=== PATIENT | female | born 1985 | race Caucasian/White ===

== ENCOUNTER 2017-03-05 19:30 | Emergency (ER) | payer BC ==
[~2017-03-05] VITALS: Ht 167.6 cm; Wt 99.2 kg
[~2017-03-05 19:30] MED LIST: EFFEXOR XR75 MG PO; ELIQUIS5 MG PO; LORAZEPAM0.5 MG PO; VENLAFAXINE HCL75 M1 PO; VENLAFAXINE75 M2 PO; XANAX0.25 MG PO; ZOFRAN4 MG/TAB PO
[2017-03-05] MEDS ORDERED: XANAX0.5 MG PO (19:50)
[2017-03-05 20:46] LABS: URINE BILIRUBIN - DIPSTICK NEGATIVE (NEGATIVE); URINE BLOOD DIPSTICK NEGATIVE (NEGATIVE); URINE CLARITY CLEAR; URINE COLOR YELLOW; URINE GLUCOSE - DIPSTICK NEGATIVE (NEGATIVE); URINE KETONE NEGATIVE (NEGATIVE); URINE LEUK ESTERASE NEGATIVE (NEGATIVE); URINE NITRITE - DIPSTICK NEGATIVE (Negative); URINE PROTEIN - DIPSTICK NEGATIVE (NEG-TRACE); URINE UROBILINOGEN - DIPSTICK 0.2 E.U./dL (0.2)
[2017-03-05 20:58] LABS: HEMATOCRIT 31.3 % (37.0-47.0); HEMOGLOBIN 10.1 g/dl (12.0-16.0); IMMATURE GRANULOCYTES 1.8 % (0.0-1.0); MEAN CELL VOLUME 83.7 fL CALC (80.0-100.0); MEAN CORPUSCULAR HGB CONC 32.3 g/L CALC (32.0-36.0); NEUT# 7.36 thou/uL (2.00-7.15); RED BLOOD COUNT 3.74 mill/uL (4.20-5.60); RED CELL DISTRI WIDTH 13.7 % (11.5-15.5)
[2017-03-05 21:12] LABS: INFLUENZA A NONE DETECTED (NONE DETECT); INFLUENZA B NONE DETECTED (NONE DETECT)
[2017-03-05 21:15] LABS: ALBUMIN 3.5 g/dL (3.2-5.0); ALKALINE PHOSPHATASE 79 u/l (38-126); ANION GAP 16 (6-22 (CALC)); BILIRUBIN, TOTAL 0.6 mg/dL (0.0-1.4); BUN 6 mg/dL (7-17); BUN/CREATININE RATIO 12 (12-20 (CALC)); CALCIUM 9.6 mg/dL (8.4-10.2); CARBON DIOXIDE 20 mmol/l (22-30); CHLORIDE 106 mmol/l (95-108); CREATININE 0.5 mg/dL (0.5-1.0); GFR > 60 ML/MIN (>=60 (CALC)); GFR FOR AFR.AMER. > 60 ML/MIN (>=60 (CALC)); GLUCOSE 86 mg/dL (65-105); POTASSIUM 4.1 mmol/l (3.5-5.1); SGOT/AST 12 u/l (14-36); SGPT/ALT 26 u/l (9-52); SODIUM 138 mmol/l (137-146); TOTAL PROTEIN 6.4 g/dL (6.3-8.2)
[2017-03-05 21:57] VITALS: BP 130/68
== END 2017-03-05 22:00 | disposition home or self-care (01) | DRG 781 ==
LOC: ED 19:30
PROVIDERS: Emergency Medicine
DX: O99.013 Anemia complicating pregnancy, third trimester (principal); R42 Dizziness and giddiness; Z3A.33 33 weeks gestation of pregnancy; R53.1 Weakness; R11.0 Nausea

== ENCOUNTER 2017-04-28 17:50 | Emergency (ER) | payer BC ==
[~2017-04-28] VITALS: Ht 167.6 cm; Wt 110.0 kg
[~2017-04-28 17:50] MED LIST changes: +XANAX0.5 MG PO
[2017-04-28 19:59] LABS: URINE BILIRUBIN - DIPSTICK NEGATIVE (NEGATIVE); URINE BLOOD DIPSTICK TRACE-INTACT (NEGATIVE); URINE CLARITY CLEAR; URINE COLOR YELLOW; URINE GLUCOSE - DIPSTICK NEGATIVE (NEGATIVE); URINE KETONE NEGATIVE (NEGATIVE); URINE LEUK ESTERASE NEGATIVE (NEGATIVE); URINE NITRITE - DIPSTICK NEGATIVE (Negative); URINE PH 5.5 (4.5-8.0); URINE PROTEIN - DIPSTICK NEGATIVE (NEG-TRACE); URINE UROBILINOGEN - DIPSTICK 0.2 E.U./dL (0.2)
[2017-04-28 20:03] LABS: BARBITURATES NEGATIVE (NEGATIVE); COCAINE NEGATIVE (NEGATIVE); HEMATOCRIT 38.4 % (37.0-47.0); HEMOGLOBIN 11.4 g/dl (12.0-16.0); IMMATURE GRANULOCYTES 0.6 % (0.0-1.0); MEAN CELL VOLUME 79.2 fL CALC (80.0-100.0); MEAN CORPUSCULAR HGB 23.5 pG CALC (26.0-32.0); MEAN CORPUSCULAR HGB CONC 29.7 g/L CALC (32.0-36.0); METHADONE NEGATIVE (NEGATIVE); NEUT# 6.11 thou/uL (2.00-7.15); OXCYCODONE NEGATIVE (NEGATIVE); RED BLOOD COUNT 4.85 mill/uL (4.20-5.60); RED CELL DISTRI WIDTH 15.8 % (11.5-15.5); TETRAHYDROCANNABIONOL NEGATIVE (NEGATIVE); TRICYLIC ANTIDEPRESSANTS NEGATIVE (NEGATIVE)
[2017-04-28 20:54] LABS: ALBUMIN 4.1 g/dL (3.2-5.0); ALKALINE PHOSPHATASE 101 u/l (38-126); ANION GAP 17 (6-22 (CALC)); BUN 13 mg/dL (7-17); BUN/CREATININE RATIO 18 (12-20 (CALC)); CALCIUM 9.7 mg/dL (8.4-10.2); CARBON DIOXIDE 24 mmol/l (22-30); CHLORIDE 108 mmol/l (95-108); CREATININE 0.7 mg/dL (0.5-1.0); GFR > 60 ML/MIN (>=60 (CALC)); GFR FOR AFR.AMER. > 60 ML/MIN (>=60 (CALC)); GLUCOSE 85 mg/dL (65-105); POTASSIUM 4.4 mmol/l (3.5-5.1); SGOT/AST 21 u/l (14-36); SGPT/ALT 35 u/l (9-52); SODIUM 144 mmol/l (137-146); TOTAL PROTEIN 7.3 g/dL (6.3-8.2)
[2017-04-28 22:03] VITALS: BP 130/73
== END 2017-04-28 22:03 | disposition home or self-care (01) | DRG 880 ==
LOC: ED 17:50
PROVIDERS: Emergency Medicine
DX: F41.9 Anxiety disorder, unspecified (principal); I10 Essential (primary) hypertension; F43.10 Post-traumatic stress disorder, unspecified; Z86.718 Personal history of other venous thrombosis and embolism

== ENCOUNTER → 2018-09-23 | Outpatient (REF) | payer BC | END | disposition home or self-care (01) | DRG 864 | LOC: LABSPEC 12:22 | PROVIDERS: ATTEND Nurse Practitioner Family | DX: R50.9 Fever, unspecified (principal) ==

== ENCOUNTER 2019-03-08 17:55 | Emergency (ER) | payer SELFPAY ==
[~2019-03-08] VITALS: Ht 167.6 cm; Wt 102.8 kg
[2019-03-08] MEDS ORDERED: LAMICTAL100 MG PO (18:31)
[2019-03-08] MEDS ORDERED: FLUOXETINE HCL20 MG PO (18:32)
[2019-03-08] MEDS ORDERED: FLUOXETINE20 MG PO (18:43)
[2019-03-08 18:50] VITALS: BP 123/70
== END 2019-03-08 18:50 | disposition home or self-care (01) | DRG 951 ==
LOC: ED 17:55
DX: Z76.0 Encounter for issue of repeat prescription (principal); F41.9 Anxiety disorder, unspecified; F43.10 Post-traumatic stress disorder, unspecified

== ENCOUNTER 2019-04-28 14:12 | Emergency (ER) | payer OTHER ==
[~2019-04-28] VITALS: Ht 167.6 cm; Wt 95.0 kg
[~2019-04-28 14:12] MED LIST changes: +FLUOXETINE HCL20 MG PO; +FLUOXETINE20 MG PO; +LAMICTAL100 MG PO
[2019-04-28] MEDS ORDERED: PROZAC10 MG PO (15:48)
[2019-04-28] MEDS ORDERED: CLONAZEPAM1 MG PO (15:49)
[2019-04-28] MEDS ORDERED: MARINOL5 MG PO (15:50)
[2019-04-28] MEDS ORDERED: MEDDOSEPAK PO (17:59)
[2019-04-28] MEDS ORDERED: LORTAB 7.57.5 MG PO (17:59)
[2019-04-28] MEDS ORDERED: FLEXERIL PO (17:59)
[2019-04-28 19:05] VITALS: BP 113/76
== END 2019-04-28 19:05 | disposition home or self-care (01) | DRG 552 ==
LOC: ED 14:12
DX: M62.830 Muscle spasm of back (principal); F17.210 Nicotine dependence, cigarettes, uncomplicated

== ENCOUNTER 2021-11-17 16:33 | Emergency (ER) | payer OTHER ==
[~2021-11-17] VITALS: Ht 167.6 cm; Wt 118.0 kg
[~2021-11-17 16:33] MED LIST changes: +CLONAZEPAM1 MG PO; +FLEXERIL PO; +LORTAB 7.57.5 MG PO; +MARINOL5 MG PO; +MEDDOSEPAK PO; +PROZAC10 MG PO
[2021-11-17 16:46] VITALS: BP 131/94
[2021-11-17] MEDS ORDERED: KLONOPIN1 MG PO (17:16)
[2021-11-17 17:21] VITALS: BP 131/94
== END 2021-11-17 17:28 | disposition home or self-care (01) | DRG 951 ==
LOC: ED 16:33
DX: Z76.0 Encounter for issue of repeat prescription (principal); F41.9 Anxiety disorder, unspecified; F17.200 Nicotine dependence, unspecified, uncomplicated

== ENCOUNTER 2022-01-29 14:25 | Emergency (ER) | payer OTHER ==
[~2022-01-29] VITALS: Ht 167.6 cm; Wt 110.0 kg
[2022-01-29] VITALS (10 sets, daily range): BP systolic 95–129; BP diastolic 65–84
[~2022-01-29 14:25] MED LIST changes: +KLONOPIN1 MG PO
[2022-01-29 14:55] LABS: HEMATOCRIT 41.5 % (37.0-47.0); HEMOGLOBIN 12.9 g/dl (12.0-16.0); IMMATURE GRANULOCYTES 0.2 % (0.0-5.0); MEAN CELL VOLUME 83.2 fL CALC (80.0-100.0); MEAN CORPUSCULAR HGB 25.9 pG CALC (26.0-32.0); MEAN CORPUSCULAR HGB CONC 31.1 g/dL CAL (32.0-36.0); NEUT# 4.53 thou/uL (2.00-7.15); RED BLOOD COUNT 4.99 mill/uL (4.20-5.60)
[2022-01-29 15:14] LABS: ALBUMIN 3.9 g/dL (3.2-5.0); ALKALINE PHOSPHATASE 61 u/l (38-126); ANION GAP 9 (6-22 (CALC)); BILIRUBIN, TOTAL 0.5 mg/dL (0.0-1.4); BUN 3 mg/dL (7-17); BUN/CREATININE RATIO 4 (12-20 (CALC)); CARBON DIOXIDE 23 mmol/l (22-30); CHLORIDE 109 mmol/l (95-108); CREATININE 0.9 mg/dL (0.5-1.0); GFR FOR AFR.AMER. > 60 ML/MIN (>=60 (CALC)); GFR OTHER RACES > 60 ML/MIN (>=60 (CALC)); POTASSIUM 4.5 mmol/l (3.5-5.1); SGOT/AST 35 u/l (14-36); SODIUM 136 mmol/l (137-146); TOTAL PROTEIN 7.1 g/dL (6.3-8.2)
[2022-01-29] MEDS ORDERED: PREDNISONE50 MG PO (16:38)
[2022-01-29] MEDS ORDERED: AMOX/K CLAV875 M1 PO (16:38)
[2022-01-29] MEDS ORDERED: CHERATUSSIN PO (16:38)
[2022-01-29] MEDS ORDERED: ZPAK PO (16:38)
[2022-01-29] MEDS ORDERED: PROAIR HFA108 MCG/AC PO (16:38)
== END 2022-01-30 10:26 | disposition home or self-care (01) | DRG 203 ==
LOC: ED 14:25
PROVIDERS: Family Medicine
DX: J40 Bronchitis, not specified as acute or chronic (principal); F41.9 Anxiety disorder, unspecified; E78.00 Pure hypercholesterolemia, unspecified; F17.210 Nicotine dependence, cigarettes, uncomplicated; Z20.822 Contact with and (suspected) exposure to COVID-19

== ENCOUNTER 2022-02-02 16:16 | Emergency (ER) | payer OTHER ==
[~2022-02-02] VITALS: Ht 167.6 cm; Wt 109.7 kg
[~2022-02-02 16:16] MED LIST changes: +AMOX/K CLAV875 M1 PO; +CHERATUSSIN PO; +PREDNISONE50 MG PO; +PROAIR HFA108 MCG/AC PO; +ZPAK PO
[2022-02-02 16:25] VITALS: BP 145/102
[2022-02-02 16:39] VITALS: BP 124/93
[2022-02-02 17:01] VITALS: BP 111/77
[2022-02-02 17:10] LABS: HEMATOCRIT 41.3 % (37.0-47.0); HEMOGLOBIN 12.8 g/dl (12.0-16.0); MEAN CELL VOLUME 82.9 fL CALC (80.0-100.0); MEAN CORPUSCULAR HGB 25.7 pG CALC (26.0-32.0); NEUT# 4.12 thou/uL (2.00-7.15); RED BLOOD COUNT 4.98 mill/uL (4.20-5.60); RED CELL DISTRI WIDTH 15.8 % (11.5-15.5)
[2022-02-02 17:29] LABS: ALBUMIN 3.9 g/dL (3.2-5.0); ALKALINE PHOSPHATASE 68 u/l (38-126); ANION GAP 10 (6-22 (CALC)); BILIRUBIN, TOTAL 0.6 mg/dL (0.0-1.4); BUN 13 mg/dL (7-17); BUN/CREATININE RATIO 15 (12-20 (CALC)); CARBON DIOXIDE 24 mmol/l (22-30); CHLORIDE 106 mmol/l (95-108); CREATININE 0.8 mg/dL (0.5-1.0); GFR FOR AFR.AMER. > 60 ML/MIN (>=60 (CALC)); GFR OTHER RACES > 60 ML/MIN (>=60 (CALC)); POTASSIUM 3.6 mmol/l (3.5-5.1); SGOT/AST 21 u/l (14-36); SODIUM 136 mmol/l (137-146); TOTAL PROTEIN 7.3 g/dL (6.3-8.2)
[2022-02-02 17:30] VITALS: BP 116/81
[2022-02-02] MEDS ORDERED: MECLIZINE25 MG PO (18:59)
[2022-02-02 19:02] VITALS: BP 116/81
== END 2022-02-02 19:13 | disposition home or self-care (01) | DRG 149 ==
LOC: ED 16:16
PROVIDERS: Family Medicine
DX: R42 Dizziness and giddiness (principal); F41.9 Anxiety disorder, unspecified; E78.00 Pure hypercholesterolemia, unspecified; F17.200 Nicotine dependence, unspecified, uncomplicated

== ENCOUNTER 2023-07-18 10:40 | Emergency (ER) | payer OTHER ==
[~2023-07-18 10:40] MED LIST changes: +MECLIZINE25 MG PO
== END 2023-07-18 10:56 | disposition left against medical advice (07) | DRG 951 ==
LOC: ED 10:40 → LWOBS 10:56
DX: Z53.21 Procedure and treatment not carried out due to patient leaving prior to being seen by health care provider (principal)